=== PATIENT | male | born 1965 | race American Indian/Alaskan Native ===

== ENCOUNTER 2018-11-07 14:42 | Emergency (ER) | payer BC ==
[2018-11-07 14:42] VITALS: BMI 32.8
[2018-11-07 14:49] VITALS: BP 180/90; PULSE 75; RESP 18; TEMP 98.5; O2SAT 99
--- NOTE | 2018-11-07 15:23 | ED PDOC ---
Lower Extremity Pain/Injury Time Seen by Provider: 11/07/18 14:55 Chief Complaint (Nursing): Med Refill Chief Complaint (Provider): Med Refill History/Exam Limitations: no limitations Onset/Duration Of Symptoms: Persistent Current Symptoms Are (Timing): Still Present Severity: Moderate Additional Complaint(s): 53 year old male presents to the ED for evaluation of persistent left ankle swelling in setting of recent diagnosis of gout. Patient was seen in this ED two days ago for ankle swelling and was discharged with Indomethacin and Tramadol. He reports compliance with medications, but has since ran out. The pain and swelling have been improving just not completely resolved. Patient states that he attempted to f/u with PMD for med refill however he was late for appt and it was cancelled. He has a new follow up appointment in four days and is not currently on long- term medications to manage gout. 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 He offers no other complaints and is just requesting medication refill at this time. PMD: [place] Past Medical History Reviewed: Historical Data, Nursing Documentation, Vital Signs Vital Signs: Last Vital Signs Temp 98.5 F 11/07/18 14:46 Pulse 75 11/07/18 14:46 Resp 18 11/07/18 14:46 BP 180/90 H 11/07/18 14:46 Pulse Ox 99 11/07/18 14:46 - Medical History PMH: COPD, HTN Denies: Chronic Kidney Disease - Surgical History Surgical History: No Surg Hx - Family History Family History: States: Unknown Family Hx - Immunization History Hx Tetanus Toxoid Vaccination: No Hx Influenza Vaccination: No Hx Pneumococcal Vaccination: No - Home Medications Home Medications: Ambulatory Orders Medication Instructions Recorded Fluticasone/Salmeterol 250/50 1 puff IH Q12 10/14/16 [Advair Diskus 250/50] Tiotropium [Spiriva] 18 mcg IH DAILY 10/14/16 amLODIPine [Norvasc] 10 mg PO DAILY 10/14/16 Amoxicillin/Clavulanate [Augmentin 1 tab PO BID #20 tab 10/17/16 875 MG-125 MG] Indomethacin 50 mg PO BID PRN 7 Days capsule 11/02/18 traMADol [Ultram] 50 mg PO Q8 PRN #9 tab 11/02/18 Indomethacin 50 mg PO BID #10 capsule 11/07/18 - Allergies Allergies/Adverse Reactions: Allergies Allergy/AdvReac Type Severity Reaction Status Date / Time No Known Allergies Allergy Verified 11/07/18 14:45 Review of Systems ROS Statement: Except As Marked, All Systems Reviewed And Found Negative Musculoskeletal: Positive for: Other (left ankle swelling secondary to gout) Physical Exam - Reviewed Nursing Documentation Reviewed: Yes Vital Signs Reviewed: Yes - Physical Exam Appears: Positive for: No Acute Distress Head Exam: Positive for: ATRAUMATIC, NORMAL INSPECTION, NORMOCEPHALIC Skin: Positive for: Normal Color, Warm, Dry Eye Exam: Positive for: EOMI, Normal appearance, PERRL Cardiovascular/Chest: Positive for: Regular Rate, Rhythm. Negative for: Murmur Respiratory: Positive for: Normal Breath Sounds. Negative for: Respiratory Distress Extremity: Positive for: Normal ROM (full ROM), Tenderness (mild tenderness to left ankle), Swelling (mild swelling to left ankle). Negative for: Calf Tenderness, Deformity, Other (erythema, induration or warmth) Neurological/Psych: Positive for: Awake, Alert, Normal Tone, Oriented. Negative for: Motor/Sensory Deficits - ECG O2 Sat by Pulse Oximetry: 99 (RA) Pulse Ox Interpretation: Normal Medical Decision Making Medical Decision Makin:55 MDM: Informed patient of the risks of half-way anti-inflammatory use on kidneys. He is currently not on long-term medication for gout management. Patient is aware of need for follow up with PMD for medications. -- Scribe Attestation: Documented by Zahida Mckeon acting as a scribe for Sylvia Lawson PA-C. Provider Scribe Attestation: All medical record entries made by the Scribe were at my direction and personally dictated by me. I have reviewed the chart and agree that the record accurately reflects my personal performance of the history, physical exam, medical decision making, and the department course for this patient. I have also personally directed, reviewed, and agree with the discharge instructions and disposition. Disposition - Clinical Impression Clinical Impression: Gout attack - Patient ED Disposition Is Patient to be Admitted: No Counseled Patient/Family Regarding: Diagnosis, Need For Followup, Rx Given - Disposition Disposition: Routine/Home Disposition Time: 15:43 Condition: STABLE Additional Instructions: follow up with your pmd Prescriptions: Indomethacin 50 mg PO BID #10 capsule Instructions: Gout (DC), Lifestyle Changes to Manage Gout Forms: [employer] ([place])
== END 2018-11-07 15:45 | disposition home or self-care (01) ==
LOC: H.ER 14:42
DX: M10.9 Gout, unspecified (principal); I10 Essential (primary) hypertension